=== PATIENT | male | born 1970 | race Caucasian/White ===

== ENCOUNTER → 2018-05-29 | Outpatient (CLI) | payer OTHER ==
[~2018-05-29] MED LIST: AVPAK AZITHROM250 M1 PO; BREO ELLIPTA 11 EACH INH; BUMETANIDE1 MG PO; CEFTRIAXONE1 GM IJ; ELIQUIS5 M1 PO; ENOXAPARIN100 MG/1 M SC; HEALTHYLAX17 GM PO; KLOR-CON M2020 ME1 PO; LASIX40 MG PO; LOPRESSOR25 MG PO; LOPRESSOR50 M1 PO; MUCINEX ER600 MG PO; NATURE'S BLEND F1 MG PO; OXYCODONE HCL15 MG PO; PULMICORT RESP0.5 M1 INH; VENTOLIN 02.5 MG/3 M INH; VERAPAMIL HCL80 MG PO
== END | disposition home or self-care (01) ==
LOC: RESCLI 02:54
DX: Z09 Encounter for follow-up examination after completed treatment for conditions other than malignant neoplasm (principal); Z12.11 Encounter for screening for malignant neoplasm of colon; J90 Pleural effusion, not elsewhere classified; E66.01 Morbid (severe) obesity due to excess calories; I48.0 Paroxysmal atrial fibrillation; I50.30 Unspecified diastolic (congestive) heart failure; I31.3 Pericardial effusion (noninflammatory); J44.9 Chronic obstructive pulmonary disease, unspecified; Z79.899 Other long term (current) drug therapy; Z76.89 Persons encountering health services in other specified circumstances; Z71.6 Tobacco abuse counseling; Z91.040 Latex allergy status

== ENCOUNTER 2018-06-30 11:40 | Inpatient (IN) | payer OTHER ==
[~2018-06-30] VITALS: Ht 172.7 cm; Wt 102.2 kg
--- NOTE | ~2018-06-30 | EKG ---
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
--- NOTE | ~2018-06-30 | CON ---
[place], [place] REPORT OF CONSULTATION [id number] UNIT #: [id number] ROOM: 415 DOCTOR: JOHNNY BELTRAN MDCURTIS BIRTHDATE: [birth year] DOS: 07/01/2018 PULMONARY CONSULTATION, EVALUATION, AND MANAGEMENT CONSULTATION REQUESTED BY: Hospitalist service. REASON FOR CONSULTATION: For the current assessment of symptoms of shortness of breath. HISTORY OF PRESENT ILLNESS: The patient reviewed from [facility]. This is a 48-year-old white male who has been recently diagnosed with mesothelioma during his hospitalization in [facility] on 06/03/2018, the right-sided epithelioid type. The patient remains in the hospital and then discharged to the nursing facility at [facility]. The patient has been treated at [facility] with gradual improvement in overall debility, walking about 150 feet on the level surface. He was noted with progressive increased edema of the lower extremity, has been receiving the oral Lasix 40 mg b.i.d., but the edema of the extremity still not noted with significant improvement. The patient denies any symptoms of chest pain with that. He does have a cough, which was noted mild without any sputum expectoration. Denies symptoms of wheezing. The patient denies any symptoms of hemoptysis. REVIEW OF SYSTEMS: CONSTITUTIONAL: Still noted significant fatigue and tiredness, no symptoms of fever or chills. EYES: Denies burning, redness, or tenderness. EARS, NOSE, THROAT SYMPTOMS: Denies sore throat, hoarseness, otalgia, postnasal drainage, or epistaxis. CARDIOVASCULAR SYSTEM: The patient was noted with edema of the extremities. Denies symptoms of palpitation or anginal pain. GASTROINTESTINAL: Denies dysphagia, nausea, vomiting, diarrhea, abdominal pain, hematemesis, melena, or hematochezia. GENITOURINARY: No dysuria, suprapubic pain, or hematuria. MUSCULOSKELETAL: No acute joint pain, redness, or tenderness. SKIN: Denies any abnormal lesions or rashes. PAST MEDICAL HISTORY: Known with: 1. Pericarditis, which developed in beginning of May 2018, treated with medication and resolved. It was not noted malignant. 2. Mesothelioma. The diagnosis was established with the biopsy of the pleural fluid with a mini thoracotomy in 06/03/2018 on the right side. 3. The patient with chronic obstructive pulmonary disease. 4. Chronic moderate obesity. 5. Suspicion of obstructive sleep apnea, which was not treated. 6. Chronic hypoxic respiratory failure. 7. Atrial fibrillation and flutter as well. PAST SURGICAL HISTORY: 1. Thoracentesis, which was done on 05/17/2018, in [place], [place] REPORT OF CONSULTATION NAME: ANGEL JI UNIT #: [id number] ROOM: [facility] DOCTOR: AUSTIN CHARLES MDM BIRTHDATE: [birth year] on the right side with malignant cells noted at that time. 2. MediPort insertion that was done as well by Dr. Davies on 06/12/2018 on the left side of the left subclavian approach. SOCIAL HISTORY: The patient is single, not , lives at home. He has not been noted any history of alcohol use or any illicit drugs. The tobacco use was noted from the age of [age] years old, 2 packs of cigarettes per day. 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 FAMILY HISTORY: The patient's father is known 82-year-old with history of COPD. Mother at age 60 due to complication of Hodgkin's lymphoma. CURRENT MEDICATIONS: Administered on this hospitalization noted as use of MiraLax, DuoNeb, metoprolol tartrate, Mucinex, Eliquis, potassium chloride, Bumex 1 gram IV b.i.d., morphine sulfate p.r.n. use, folic acid, and other p.r.n. medications. ALLERGIES: No known drug allergies. PHYSICAL EXAMINATION: GENERAL: A 48-year-old white male who has been noted currently awake and alert without acute distress. Height of 5 feet 8 inches, weight of 244 pounds. VITAL SIGNS: For the patient, which have been recorded showed normal temperature, respiratory rate 18-20, heart rate of 91-76, blood pressure 101/81-148/63. Pulse oxygen saturation on 40% oxygen was 98%, with the BiPAP and 4 liters nasal cannula this morning was 92% saturation. HEENT: Examination shows head was atraumatic. Chronic obesity. Decreased posterior pharyngeal space. CARDIOVASCULAR: S1, S2 audible. LUNGS: Noted general reduction in the breath sounds with mid to lower portion of the right lung. Remaining lung was noted clear of any wheezing. There were no crackles heard. ABDOMEN: Soft. Moderate obesity. Bowel sounds present. EXTREMITIES: Show no edema of upper and the lower extremities. The left upper extremity was noted with more edema in the left upper extremity. DIAGNOSTIC STUDIES: Chest x-ray shows postoperative changes in the left side with pleural thickening in the right mid and the right lower portion of the lung. MediPort noted in place in the left chest with the left subclavian approach. There were no acute infiltration. There were no findings of significant gross pleural fluid seen. IMPRESSION: 1. The patient who has been currently admitted to the hospital noted with progressive edema of the lower extremity, congestive heart failure, mostly diastolic dysfunction. 2. History of atrial fibrillation and flutter, which has been previously treated. 3. Past history of acute pericarditis, resolved in May 2018. 4. Recent diagnosis of epithelioid type mesothelioma on the right side, so far [place], [place] REPORT OF CONSULTATION NAME: ANGEL JI UNIT #: [id number] ROOM: [facility] DOCTOR: JOHNNY BELTRAN MD,[facility] BIRTHDATE: [birth year] not treated, managed by the Oncology services. The patient does have an appointment with Oncology yesterday, but because of the hospitalization, it was canceled and rescheduled. 5. Refractoriness to the use of the oral diuretic, Lasix [facility] b.i.d. [facility] with generalized edema, which seemed partially better. 6. The patient with chronic obesity. 7. Suspected diagnosis of obstructive sleep apnea disorder. 8. Chronic hypoxic respiratory failure as well. 9. Chronic obstructive pulmonary disease noted stable at the present time. PLAN OF MANAGEMENT: The patient has been started on IV Bumex, which will be continued at this time twice a day. Monitor kidney function closely and electrolytes. Oxygen supplementation, use the BiPAP 16/10 setting at nighttime use and p.r.n. at the time of respiratory distress. Also obtain an ultrasound of the left upper extremity to exclude deep venous thrombosis because of significant edema in spite of using the Eliquis dose b.i.d. for the long-term anticoagulation. Other supportive therapy, plan of management, care plan. A 30 minutes greater for this consultation. CURTIS TURNER MD CM:CONSTR:REPORT OF CONSULTATION 1054 07/21/18 0826 interface
--- NOTE | ~2018-06-30 | PR ---
[place], [place] PROGRESS NOTE [id number] UNIT #: [id number] ROOM: 415 DOCTOR: JOHNNY BELTRAN MD,CURTIS BIRTHDATE: [birth year] DOS: 07/02/2018 SUBJECTIVE: The patient noted comfortable at this time, resting on the bed, still noted with some symptoms of shortness of breath, edema and swelling of the extremities was noted. Partial reduction was noted, but still noted significant edema at this time. Ultrasound of the left upper extremity was completed, which shows evidence of deep venous thrombosis and left internal jugular vein. OBJECTIVE: VITAL SIGNS: Normal temperature, respiratory rate 20, heart rate of 90, blood pressure 138/62. Pulse oxygen saturation noted on 5 liters nasal cannula 97% saturation. HEENT: Head was atraumatic. Eyes nonicterus. CARDIOVASCULAR: S1, S2 audible. LUNGS: Noted with moderate decreased breath sounds on the right side. There were no crackle, rhonchi, or wheezing. ABDOMEN: Soft, nontender. EXTREMITIES: Still noted with edema. LABORATORY DATA: CBC; WBC count of 12,000, hemoglobin 10.9, hematocrit was 35.2, and platelet count was normal. CMP with normal BUN and creatinine. IMPRESSION: 1. The patient with mesothelioma on the right chest was noted. 2. Acute deep venous thrombosis of the left internal jugular vein with edema of the left upper extremity, general fluid retention. PLAN OF MANAGEMENT: Continue diuretic therapy. Continuation of the anticoagulation was changed to the high dose anticoagulation. Acute venous thrombosis, Eliquis 10 mg b.i.d. for 7 days and then usual dose of 5 mg b.i.d. will be continued. The patient could be transferred to the nursing facility. Continue diuretic therapy. Other therapy, plan of management and care. CURTIS TURNER MD CM:PNSKIP [id number] CURTIS BELTRAN MD 07/02/182347 interface
--- NOTE | ~2018-06-30 | PR ---
[place], [place] PROGRESS NOTE NAME: ANGEL JI UNIT #: [id number] ROOM: 415 DOCTOR: JOHNNY BELTRAN MD,CURTIS BIRTHDATE: [birth year] DOS: 07/03/2018 SUBJECTIVE: The patient noted comfortable at this time without any distress, complaining of pain in the chest, which has been treated with the pain medications. Denies any shortness of breath. Edema of the upper and lower extremity, resolving. The patient has been currently getting Lovenox 1 mg/kg body weight. OBJECTIVE: VITAL SIGNS: Normal temperature, respiratory rate 18, heart rate 87, blood pressure 125/57 with pulse ox saturation on 4 liters 96% saturation. HEENT: No acute change. NECK: Supple. CARDIOVASCULAR: S1, S2 is audible. LUNGS: The patient was noted without any wheezing or crackles at the present time. ABDOMEN: Soft, nontender. EXTREMITIES: The patient with resolving edema. LABORATORY DATA: The BMP that was done noted as normal. BMP this morning, CBC, WBC count 12.8, hemoglobin 10.9, hematocrit 34.4, platelet count was normal. IMPRESSION: 1. Acute deep venous thrombosis of the left upper extremity, currently treated with Lovenox. 2. History of mesothelioma on the right side with the pain related to that managed with the pain medication. 3. Resolving ____ edema with current diuretics. PLAN OF TREATMENT: No changes in the plan of care at this time. The patient could be transferred to the retirement facility for further continued care. Usual care, other supportive plan of management therapies and treatments. CURTIS TURNER MD CM:PNTRANS 1314 [id number] CURTIS BELTRAN MD 07/03/18 2345 interface
[~2018-06-30 11:40] MED LIST changes: -BREO ELLIPTA 11 EACH INH; -BUMETANIDE1 MG PO; -ELIQUIS5 M1 PO; -ENOXAPARIN100 MG/1 M SC; -HEALTHYLAX17 GM PO; -KLOR-CON M2020 ME1 PO; -LASIX40 MG PO; -LOPRESSOR50 M1 PO; -NATURE'S BLEND F1 MG PO; -OXYCODONE HCL15 MG PO; -PULMICORT RESP0.5 M1 INH; -VENTOLIN 02.5 MG/3 M INH
[2018-06-30 13:34] VITALS: BP 112/62
[2018-06-30 14:15] LABS: BILIRUBIN NEGATIVE (NEGATIVE); BLOOD TRACE-INTACT (NEGATIVE); CLARITY CLEAR (CLEAR); COLOR YELLOW (YELLOW); GLUCOSE NEGATIVE (NEGATIVE); KETONE TRACE (NEGATIVE); LEUKO ESTERASE NEGATIVE (NEGATIVE); NITRITE NEGATIVE (NEGATIVE); PH 7.5 (5.0-9.0); UROBILINOGEN 0.2 E.U./dl (0.2-1.0)
[2018-06-30 14:18] LABS: ALBUMIN 2.2 gm/dl (3.1-4.5); ALKALINE PHOSPHATASE 156 U/L (45-117); BUN 17 mg/dl (7-24); CHLORIDE 101 mmol/L (98-107); CREATININE 0.83 mg/dL (0.70-1.30); POTASSIUM 4.4 mmol/L (3.5-5.1); SGOT/AST 18 IU/L (3-35); SGPT/ALT 21 U/L (12-78); SODIUM 141 mmol/L (136-145); TOTAL PROTEIN 6.8 gm/dL (6.4-8.2); TROPONIN I < 0.015 ng/ml (<0.045)
[2018-06-30 14:22] LABS: BACTERIA 3+
[2018-06-30 14:23] LABS: EPITHELIAL CELLS 0-2; MUCOUS TRACE; RBC 0-2 rbc/hpf (0-2)
[2018-06-30 14:43] LABS: HEMATOCRIT 36.7 % (42.0-52.0); HEMOGLOBIN 11.5 g/dl (14.0-18.0); MEAN CELL VOLUME 96.6 fl (80.0-94.0); MEAN CORPUSCULAR HGB 30.3 pg (27.0-31.0); MEAN CORPUSCULAR HGB CONC 31.3 g/dl (33.0-37.0); MEAN PLATELET VOLUME 9.2 fl (9.6-12.3); PLATELET COUNT AUTOMATED 421 10*3/uL (130-400); RED CELL DISTRI WIDTH 14.6 % (0-14.5); WHITE BLOOD COUNT 12.7 10*3/uL (4.8-10.8)
[2018-06-30 14:44] LABS: PLATELET SUFFICIENCY HIGH (NORMAL); TOTAL CELLS COUNTED 100 #CELLS
[2018-06-30] MEDS ORDERED: LOPRESSOR50 M1 PO (14:44)
[2018-06-30 14:45] VITALS: BP 148/63
[2018-06-30] MEDS ORDERED: OXYCODONE HCL15 MG PO (14:46)
[2018-06-30] MEDS ORDERED: HEALTHYLAX17 GM PO (14:51)
[2018-06-30] MEDS ORDERED: KLOR-CON M2020 ME1 PO (14:52)
[2018-06-30] MEDS ORDERED: LASIX40 MG PO (14:52)
[2018-06-30] MEDS ORDERED: VENTOLIN 02.5 MG/3 M INH (14:57)
[2018-06-30] MEDS ORDERED: BREO ELLIPTA 11 EACH INH (14:59)
[2018-06-30] MEDS ORDERED: PULMICORT RESP0.5 M1 INH (15:00)
[2018-06-30] MEDS ORDERED: ELIQUIS5 M1 PO (15:01)
[2018-06-30] MEDS ORDERED: NATURE'S BLEND F1 MG PO (15:02)
[2018-06-30 16:00] VITALS: BP 125/53
[2018-06-30 20:00] VITALS: BP 119/40; BP 120/54
[2018-07-01] VITALS: BP 101/81
[2018-07-01 06:04] LABS: BASO # 0.1 10*3/uL (0.0-0.1); BASO % 0.4 % (0.0-1.0); EOS % 0.3 % (1.0-4.0); HEMATOCRIT 35.1 % (42.0-52.0); HEMOGLOBIN 10.9 g/dl (14.0-18.0); LYMPH # 1.2 10*3/uL (1.3-4.4); LYMPH % 10.4 % (27.0-41.0); MEAN CELL VOLUME 96.7 fl (80.0-94.0); MEAN CORPUSCULAR HGB CONC 31.1 g/dl (33.0-37.0); MEAN PLATELET VOLUME 9.5 fl (9.6-12.3); MONO # 1.2 10*3/uL (0.1-1.0); MONO % 10.6 % (3.0-9.0); PLATELET COUNT AUTOMATED 375 10*3/uL (130-400); RED BLOOD COUNT 3.63 10*6/uL (4.50-5.90); RED CELL DISTRI WIDTH 14.6 % (0-14.5); WHITE BLOOD COUNT 11.5 10*3/uL (4.8-10.8)
[2018-07-01 06:18] LABS: ALBUMIN 2.6 gm/dl (3.1-4.5); BUN 16 mg/dl (7-24); CHLORIDE 100 mmol/L (98-107); POTASSIUM 3.7 mmol/L (3.5-5.1); SGOT/AST 18 IU/L (3-35); SODIUM 140 mmol/L (136-145)
[2018-07-01 06:27] LABS: ALKALINE PHOSPHATASE 139 U/L (45-117); CHOLESTEROL 153 mg/dL (<200); CREATININE 0.58 mg/dL (0.70-1.30); FREE T4 1.28 ng/dl (0.76-1.46); HDL CHOLESTEROL 50 mg/dl (40-60); LDL CHOLESTEROL 88 mg/dL (9-159); PHOSPHOROUS 3.5 mg/dL (2.5-4.9); SGPT/ALT 21 U/L (12-78); TOTAL PROTEIN 6.4 gm/dL (6.4-8.2); TRIGLYCERIDES 75 mg/dl (<150); VLDL CHOLESTEROL 15 mg/dL (6-40)
[2018-07-01 06:44] LABS: ACT PARTIAL THROMBO TIME 22.5 SECONDS (20.8-31.5)
[2018-07-01 09:41] LABS: VITAMIN D, 25-HYDROXY 13.5 ng/mL (30-100)
[2018-07-01 12:00] VITALS: BP 129/67
[2018-07-01 20:00] VITALS: BP 113/73
[2018-07-02] VITALS: BP 143/74
[2018-07-02 06:22] LABS: BASO % 0.3 % (0.0-1.0); EOS % 0.2 % (1.0-4.0); HEMATOCRIT 35.2 % (42.0-52.0); HEMOGLOBIN 10.9 g/dl (14.0-18.0); LYMPH % 8.3 % (27.0-41.0); MEAN CELL VOLUME 97.2 fl (80.0-94.0); MEAN CORPUSCULAR HGB 30.1 pg (27.0-31.0); MEAN PLATELET VOLUME 9.4 fl (9.6-12.3); MONO # 1.5 10*3/uL (0.1-1.0); MONO % 12.2 % (3.0-9.0); NEUT # 9.4 10*3/uL (2.3-7.9); NEUT % 78.7 % (47.0-73.0); PLATELET COUNT AUTOMATED 334 10*3/uL (130-400); RED BLOOD COUNT 3.62 10*6/uL (4.50-5.90); RED CELL DISTRI WIDTH 14.6 % (0-14.5)
[2018-07-02 06:31] LABS: ALBUMIN 3.1 gm/dl (3.1-4.5); ALKALINE PHOSPHATASE 134 U/L (45-117); BUN 12 mg/dl (7-24); CHLORIDE 100 mmol/L (98-107); CREATININE 0.62 mg/dL (0.70-1.30); POTASSIUM 3.6 mmol/L (3.5-5.1); SGOT/AST 16 IU/L (3-35); SGPT/ALT 20 U/L (12-78); SODIUM 140 mmol/L (136-145); TOTAL PROTEIN 6.5 gm/dL (6.4-8.2)
[2018-07-02 12:00] VITALS: BP 138/62
[2018-07-02 16:00] VITALS: BP 119/63
[2018-07-02 20:00] VITALS: BP 137/54
[2018-07-03] VITALS: BP 131/67
[2018-07-03 06:09] LABS: BUN 10 mg/dl (7-24); CHLORIDE 102 mmol/L (98-107); POTASSIUM 3.9 mmol/L (3.5-5.1); SODIUM 140 mmol/L (136-145)
[2018-07-03 06:14] LABS: BASO % 0.3 % (0.0-1.0); EOS % 0.2 % (1.0-4.0); HEMATOCRIT 34.4 % (42.0-52.0); HEMOGLOBIN 10.9 g/dl (14.0-18.0); LYMPH # 1.2 10*3/uL (1.3-4.4); LYMPH % 9.5 % (27.0-41.0); MEAN CELL VOLUME 96.4 fl (80.0-94.0); MEAN CORPUSCULAR HGB 30.5 pg (27.0-31.0); MEAN CORPUSCULAR HGB CONC 31.7 g/dl (33.0-37.0); MEAN PLATELET VOLUME 9.6 fl (9.6-12.3); MONO # 1.5 10*3/uL (0.1-1.0); MONO % 11.6 % (3.0-9.0); NEUT % 78.1 % (47.0-73.0); PLATELET COUNT AUTOMATED 327 10*3/uL (130-400); RED BLOOD COUNT 3.57 10*6/uL (4.50-5.90); RED CELL DISTRI WIDTH 14.5 % (0-14.5); WHITE BLOOD COUNT 12.8 10*3/uL (4.8-10.8)
[2018-07-03 12:00] VITALS: BP 125/57
[2018-07-03] MEDS ORDERED: BUMETANIDE1 MG PO (12:57)
[2018-07-03] MEDS ORDERED: OXYCODONE HCL15 MG PO (12:57)
[2018-07-03] MEDS ORDERED: ENOXAPARIN100 MG/1 M SC (12:57)
== END 2018-07-03 15:35 | disposition other institution (70) | DRG 299 ==
LOC: ED 11:40 → EDHOLD 13:22 → 4E 13:22
PROVIDERS: Emergency Medicine; Internal Medicine
PROC: 5A09357 Assistance with Respiratory Ventilation, Less than 24 Consecutive Hours, Continuous Positive Airway Pressure (ICD-10-PCS; principal; 2018-06-30)
PROC: 5A09357 Assistance with Respiratory Ventilation, Less than 24 Consecutive Hours, Continuous Positive Airway Pressure (ICD-10-PCS; 2018-07-01)
PROC: 5A09357 Assistance with Respiratory Ventilation, Less than 24 Consecutive Hours, Continuous Positive Airway Pressure (ICD-10-PCS; 2018-07-02)
PROC: 5A09357 Assistance with Respiratory Ventilation, Less than 24 Consecutive Hours, Continuous Positive Airway Pressure (ICD-10-PCS; 2018-07-03)
DX: I82.C12 Acute embolism and thrombosis of left internal jugular vein (principal); I50.33 Acute on chronic diastolic (congestive) heart failure; E43 Unspecified severe protein-calorie malnutrition; E87.3 Alkalosis; J96.11 Chronic respiratory failure with hypoxia; D68.59 Other primary thrombophilia; I48.92 Unspecified atrial flutter; D47.3 Essential (hemorrhagic) thrombocythemia; E66.01 Morbid (severe) obesity due to excess calories; C45.9 Mesothelioma, unspecified; E83.41 Hypermagnesemia; F17.210 Nicotine dependence, cigarettes, uncomplicated; D72.829 Elevated white blood cell count, unspecified; R73.9 Hyperglycemia, unspecified; D53.9 Nutritional anemia, unspecified; J44.9 Chronic obstructive pulmonary disease, unspecified; R82.71 Bacteriuria; I48.0 Paroxysmal atrial fibrillation; Z79.899 Other long term (current) drug therapy; Z79.51 Long term (current) use of inhaled steroids; Z82.5 Family history of asthma and other chronic lower respiratory diseases; Z68.36 Body mass index [BMI] 36.0-36.9, adult; Z71.6 Tobacco abuse counseling

== ENCOUNTER 2018-07-04 03:46 | Emergency (ER) | payer OTHER ==
[~2018-07-04] VITALS: Ht 172.7 cm; Wt 102.1 kg
--- NOTE | ~2018-07-04 | EKG ---
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
[~2018-07-04 03:46] MED LIST changes: +BREO ELLIPTA 11 EACH INH; +BUMETANIDE1 MG PO; +ELIQUIS5 M1 PO; +ENOXAPARIN100 MG/1 M SC; +HEALTHYLAX17 GM PO; +KLOR-CON M2020 ME1 PO; +LASIX40 MG PO; +LOPRESSOR50 M1 PO; +NATURE'S BLEND F1 MG PO; +OXYCODONE HCL15 MG PO; +PULMICORT RESP0.5 M1 INH; +VENTOLIN 02.5 MG/3 M INH
[2018-07-04 04:27] LABS: HEMATOCRIT 37.5 % (42.0-52.0); HEMOGLOBIN 11.8 g/dl (14.0-18.0); MEAN CELL VOLUME 96.2 fl (80.0-94.0); MEAN CORPUSCULAR HGB 30.3 pg (27.0-31.0); MEAN CORPUSCULAR HGB CONC 31.5 g/dl (33.0-37.0); MEAN PLATELET VOLUME 9.5 fl (9.6-12.3); PLATELET COUNT AUTOMATED 298 10*3/uL (130-400); RED CELL DISTRI WIDTH 14.6 % (0-14.5); WHITE BLOOD COUNT 18.3 10*3/uL (4.8-10.8)
[2018-07-04 04:36] LABS: INTERNATIONAL NORM RATIO 1.1 (2.0-3.5)
[2018-07-04 04:48] LABS: ALKALINE PHOSPHATASE 129 U/L (45-117); BUN 16 mg/dl (7-24); CHLORIDE 101 mmol/L (98-107); CREATININE 0.81 mg/dL (0.70-1.30); SGOT/AST 16 IU/L (3-35); SGPT/ALT 18 U/L (12-78); SODIUM 139 mmol/L (136-145); TOTAL PROTEIN 6.7 gm/dL (6.4-8.2)
[2018-07-04 04:49] LABS: POTASSIUM 4.9 mmol/L (3.5-5.1); TROPONIN I < 0.015 ng/ml (<0.045)
[2018-07-04 04:53] LABS: PLATELET SUFFICIENCY NORMAL (NORMAL); TOTAL CELLS COUNTED 100 #CELLS
== END 2018-07-04 06:15 | disposition home or self-care (01) ==
LOC: ED 03:46
PROVIDERS: Emergency Medicine
DX: I82.402 Acute embolism and thrombosis of unspecified deep veins of left lower extremity (principal); R60.0 Localized edema; I48.0 Paroxysmal atrial fibrillation; I50.9 Heart failure, unspecified; F17.200 Nicotine dependence, unspecified, uncomplicated; Z86.718 Personal history of other venous thrombosis and embolism; Z79.899 Other long term (current) drug therapy

== ENCOUNTER 2018-07-19 21:45 | Emergency (ER) | payer OTHER ==
[~2018-07-19] VITALS: Ht 180.3 cm; Wt 97.5 kg
--- NOTE | ~2018-07-19 | EKG ---
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 : 1970 Requested By: RUFUS ACUNA Order Number: [id number] Reading MD: Rich Rosales MD Measurements Intervals [place] Rate: 97 P: MA: QRS: 76 QRSD: 120 T: 31 QT: 319 QTc: 405 Interpretive Statements Accelerated junctional rhythm Nonspecific intraventricular conduction delay Inferior infarct, acute Compared to ECG 07/04/2018 04:25:12 Accelerated junctional rhythm now present Intraventricular conduction delay now present Myocardial infarct finding now present Sinus tachycardia no longer present Electronically Signed On 07-23-2018 14:23:48 PST by Rich Rosales MD CM:EKGRPT:ELECTROCARDIOGRAM REPORT 1423 RUFUS MCELROY DRAFT REPORT RUFUS ACUNA DO
--- NOTE | ~2018-07-19 | EKG ---
[place], [place] ELECTROCARDIOGRAM REPORT NAME: ANGEL JI UNIT #: [id number] ROOM: DOCTOR: EPIPHANY DRAFT REPORT BIRTHDATE: [birth year] [facility] Test Date: 2018-07-19 Test Time: 21:55:33 Pat Name: ANGEL JI Department: ER Room: 2 Gender: M Collaborative Physician: Bia Gaona : 1970 Requested By: RUFUS ACUNA Order Number: [id number] Reading MD: Rich Rosales MD Measurements Intervals [place] Rate: 99 P: 65 [place]: 150 QRS: 75 QRSD: 112 T: 30 QT: 324 QTc: 416 Interpretive Statements Sinus rhythm Inferior infarct, acute ST elevation, consider anterolateral injury Compared to ECG 07/04/2018 04:25:12 Myocardial infarct finding now present ST (T wave) deviation now present Sinus tachycardia no longer present Electronically Signed On 07-23-2018 14:23:37 PST by Rich Rosales MD CM:EKGRPT:ELECTROCARDIOGRAM REPORT [id number] 1423 RUFUS MCELROY DRAFT REPORT RUFUS ACUNA DO
[2018-07-19 22:08] LABS: HEMATOCRIT 42.8 % (42.0-52.0); HEMOGLOBIN 13.4 g/dl (14.0-18.0); MEAN CELL VOLUME 94.3 fl (80.0-94.0); MEAN CORPUSCULAR HGB 29.5 pg (27.0-31.0); MEAN CORPUSCULAR HGB CONC 31.3 g/dl (33.0-37.0); MEAN PLATELET VOLUME 9.8 fl (9.6-12.3); NUCLEATED RED BLOOD CELL 0.1 % (0.0-0.0); PLATELET COUNT AUTOMATED 488 10*3/uL (130-400); RED BLOOD COUNT 4.54 10*6/uL (4.50-5.90); RED CELL DISTRI WIDTH 14.5 % (0-14.5); WHITE BLOOD COUNT 21.6 10*3/uL (4.8-10.8)
[2018-07-19 22:17] LABS: INTERNATIONAL NORM RATIO 1.1 (2.0-3.5)
[2018-07-19 22:24] LABS: ALBUMIN 2.3 gm/dl (3.1-4.5); ALKALINE PHOSPHATASE 180 U/L (45-117); BUN 98 mg/dl (7-24); CHLORIDE 94 mmol/L (98-107); CREATININE 5.81 mg/dL (0.70-1.30); SGOT/AST 447 IU/L (3-35); SGPT/ALT 395 U/L (12-78); SODIUM 128 mmol/L (136-145); TOTAL PROTEIN 7.3 gm/dL (6.4-8.2)
[2018-07-19 22:32] LABS: POTASSIUM 8.4 mmol/L (3.5-5.1); TROPONIN I < 0.015 ng/ml (<0.045)
[2018-07-19 22:37] LABS: PLATELET SUFFICIENCY HIGH (NORMAL); POLYCHROMASIA SLIGHT; TOTAL CELLS COUNTED 100 #CELLS
== END 2018-07-19 23:34 | disposition short-term general hospital (02) ==
LOC: ED 21:45
PROVIDERS: Emergency Medicine
DX: I21.4 Non-ST elevation (NSTEMI) myocardial infarction (principal); K76.7 Hepatorenal syndrome; E66.9 Obesity, unspecified; I48.0 Paroxysmal atrial fibrillation; I50.9 Heart failure, unspecified; F17.200 Nicotine dependence, unspecified, uncomplicated; Z79.899 Other long term (current) drug therapy; Z86.718 Personal history of other venous thrombosis and embolism